=== PATIENT | female | born 1985 | race American Indian/Alaskan Native ===

== ENCOUNTER 2021-01-16 02:01 | Emergency (ER) | payer SELFPAY ==
[2021-01-16 03:33] LABS: Hematocrit 37.5 % (30.3-42.9); Hemoglobin 12.8 gm/dl (10.1-14.3); Mean Corpuscular HGB Conc 34 % (30-34); Mean Corpuscular Volume 93 fl (79-97); Red Blood Count 4.04 M/mm3 (3.65-5.03); Red Cell Distribution Width 12.2 % (13.2-15.2)
[2021-01-16 03:34] LABS: Basophils % (Auto) 0.2 % (0.0-1.8); Eosinophils % (Auto) 0.3 % (0.0-4.3); Lymphocytes # (Auto) 2.6 K/mm3 (1.2-5.4); Lymphocytes % (Auto) 22.2 % (13.4-35.0); Monocytes # (Auto) 0.6 K/mm3 (0.0-0.8); Platelet Count 250 K/mm3 (140-440)
[2021-01-16 03:45] LABS: Alanine Aminotransferase 26 units/L (7-56); Albumin 4.4 g/dL (3.9-5); BUN/Creatinine Ratio 13; Blood Urea Nitrogen 8 mg/dL (7-17); Calcium 9.5 mg/dL (8.4-10.2); Hemolysis Index 4
--- NOTE | 2021-01-16 03:56 | Emergency Department Report ---
ED General Adult HPI - General Chief complaint: Abdominal Pain Stated complaint: N/V/STOMACH PAIN/LATE PERIOD Time Seen by Provider: 01/16/21 03:41 Source: patient Mode of arrival: Ambulatory Limitations: No Limitations - History of Present Illness Initial comments: 35-year-old female patient presents to the emergency department with complaints of diffuse abdominal cramps with associated nausea and vomiting starting tonight. Patient states she experienced 2 episodes of nonbloody emesis. No known sick contacts. No current steroid or antibiotic use. No recent travel. No history of prior abdominal surgeries. Last menstrual cycle was end of November. She has not taken a test since her last menstrual cycle. Denies fever, chills, diarrhea, constipation, vaginal bleeding, vaginal discharge. Denies all other complaints at this time. - Related Data Previous Rx's Medication Instructions Recorded Last Taken Type Pyridoxine HCl (Vitamin B6) 25 mg PO TID #30 tablet 01/16/21 Unknown Rx [Pyridoxine HCl] cephALEXin [Keflex] 500 mg PO Q12HR 7 Days cap 01/16/21 Unknown Rx Allergies Allergy/AdvReac Type Severity Reaction Status Date / Time Penicillins Allergy Hives Verified 01/16/21 04:08 ED Review of Systems ROS: Stated complaint: N/V/STOMACH PAIN/LATE PERIOD Other details as noted in HPI Other: GENERAL: Negative for fever, chills, weight change, anorexia, fatigue. ENT: Negative for ear pain, difficulty hearing, sore throat, nasal congestion, epistaxis. CARDIOVASCULAR: Negative for chest pain, palpitations, lower extremity swelling. PULMONARY: Negative for cough, dyspnea, wheezing, orthopnea, cyanosis. GASTROINTESTINAL: Positive for abdominal cramps, nausea, vomiting. MUSCULOSKELETAL: Negative for joint pain, joint swelling, myalgias, back pain, neck pain. NEUROLOGICAL: Negative for headache, seizure, syncope, paresthesias, weakness. INTEGUMENTARY: Negative for erythema, rash, diaphoresis, laceration, ecchymosis. HEMATOLOGICAL: Negative for hemoptysis, hematemesis, hematochezia, hematuria. PSYCHIATRIC: Negative for hallucinations, suicidal ideation, homicidal ideation, anxiety, depression. ED Past Medical Hx - Past Medical History Previous Medical History?: Yes Additional medical history: Pneumonia - Surgical History Past Surgical History?: No - Social History Smoking Status: Never Smoker Substance Use Type: None - Medications Home Medications: Home Medications Medication Instructions Recorded Confirmed Last Taken Type Pyridoxine HCl (Vitamin B6) 25 mg PO TID #30 tablet 01/16/21 Unknown Rx [Pyridoxine HCl] cephALEXin [Keflex] 500 mg PO Q12HR 7 Days cap 01/16/21 Unknown Rx ED Physical Exam - General Limitations: No Limitations - Other Other exam information: General: Awake and alert. No acute distress. Head: Atraumatic, normocephalic. Eyes: EOMI. Pupils are equal and round. Normal sclera and conjunctiva. ENT: Oral mucosa is moist. Normal pharyngeal exam. Neck: Supple. No lymphadenopathy. Pulmonary: No respiratory distress. Clear to auscultation bilaterally. Cardiac: Regular rate and rhythm. Pulses are palpable and equal bilaterally. No lower extremity cyanosis or edema. Skin: Warm and dry. No rashes. Abdomen: Soft, non-tender, non-protuberant. No guarding, rigidity, or rebound. Bowel sounds are normal. No organomegaly or masses noted. Back: Normal alignment. No CVA tenderness. Extremities: Symmetrical. Full range of motion intact. Neurological: Alert and oriented, appropriately interactive, no focal deficits. Psych: Cooperative. Appropriate mood and affect. Speech is evenly metered. Thoughts are logically construed. ED Course Vital Signs 01/16/21 01/16/21 02:24 04:22 Temperature 98.9 F Pulse Rate 77 69 Respiratory 18 17 Rate Blood Pressure 126/86 Blood Pressure 114/74 [Left] O2 Sat by Pulse 100 100 Oximetry ED Medical Decision Making - Lab Data Result diagrams: 01/16/21 02:44 01/16/21 02:44 - Radiology Data [facility] [address] [place] [address] Ultrasound Report Signed Patient: ISAAC MCCONNELL MR#: [id number] : 1985 Acct:[id number] Age/Sex: 35 / F ADM Date: 01/16/21 Loc: ED Attending Dr: Ordering Physician: MABEL HAYS Date of Service: 01/16/21 Procedure(s): US OB <= 14 weeks fetus Accession Number(s): [id number] cc: MABEL HAYS US OB transvaginal, US OB <= 14 wk fetus add gest INDICATION / CLINICAL INFORMATION: lower abdominal pain + nausea/vomiting, (+) HCG. TECHNIQUE: Transabdominal and Transvaginal. COMPARISON: None available. FINDINGS: UTERUS: Appears within normal limits. GESTATIONAL SAC: Well-defined oval shape and intrauterine in location. YOLK SAC: No significant abnormality. EMBRYO/FETUS: - [place]-Rump Length = 0.5 cm - Heart Rate, beats per minute (if present) = 117 beats per minute ADNEXA: No significant abnormality. FREE FLUID: None. ADDITIONAL FINDINGS: Nabothian cervical cyst, a common finding. IMPRESSION: 1. Single, living intrauterine with estimated sonographic age of 6 weeks 2 days. Signer Name: Bladimir Vazquez MD Signed: 01/16/2021 6:28 AM Workstation Name: [id number] Transcribed By: KARINE Dictated By: Bladimir Vazquez MD Electronically Authenticated By: Bladimir Vazquez MD Signed Date/Time: 01/16/21627 DD/ 5 TD/TT: - Medical Decision Making Differential diagnosis including but not limited to: dehydration, electrolyte abnormality, hypoglycemia, pancreatitis, cholecystitis, urinary tract infection, related complication On reevaluation, patient remains stable. No further vomiting in the emergency department. Repeat abdominal exam is benign. Serum test is positive with beta hCG approximately 22,000. Patient's blood type is A- however she refused RhoGam. She also refused antiemetics. Transvaginal ultrasound shows single live intrauterine approximately 6 weeks gestation. Urinalysis consistent with asymptomatic bacteriuria. Patient is afebrile without vaginal bleeding. Pain is controlled. No clinical indication for further diagnostic work-up on an emergent basis at this time. Patient will be discharged home with antiemetics, antibiotics, and referral to fur stretcher for close outpatient follow-up. Patient expressed understanding and is agreeable to plan of care. care measures discussed. Strict return precautions provided. Repeat exam is unremarkable and benign. History, exam, diagnostic testing, and current condition do not suggest worrisome pathology to warrant further testing, continued ED treatment, admission, or surgical evaluation at this point. Given the low probability of a significant medical illness, it would be more likely to result in harm than benefit to perform further testing at this stage. Discussed findings, presumptive diagnosis, need for follow-up and specific signs/symptoms that should prompt immediate return to the emergency department. Instructions were explained in detail to the patient in addition to giving written discharge information. Patient expressed understanding and was given the opportunity to ask questions, all of which were satisfactorily answered prior to discharge grayson e. Of note, patient has an allergy to penicillin documented in her medical record. States her mother told her she developed hives once as a young child after taking penicillin. She did tolerate Amoxicillin as a teenager without developing rash, difficulty breathing, or anaphylaxis. Since Macrobid is not advisable in first trimester for treatment of asymptomatic bacteriuria, benefits of Keflex administration outweigh risks. Patient has never experienced an adverse reaction to cephalosporins. Emphasized the importance of discontinuing medication immediately if any adverse effects develop. Patient expressed understanding and is agreeable to plan of care. Critical care attestation.: If time is entered above; I have spent that time in minutes in the direct care of this critically ill patient, excluding procedure time. ED Disposition Clinical Impression: Asymptomatic bacteriuria, First trimester Disposition: DC- TO HOME OR SELFCARE Is pt being admited?: No Does the pt Need Aspirin: No Condition: Stable Instructions: Abdominal Pain (ED), First Trimester of Additional Instructions: Take vitamins as directed. Take Pyridoxine as directed for nausea/vomiting. Take Tylenol every 4 hours as needed for pain. Take Keflex with food as directed. Discontinue Keflex immediately if you begin experiencing any adverse effects. Please avoid smoking, drugs, caffeine, and alcohol. Eat a well-balanced diet. Do not eat shellfish. Drink plenty of fluids. Follow up with fur stretcher this week. Call today to schedule an appointment. See referral information below. Do not take anything except Tylenol for pain without consulting your FIELD WORKER. Return to the Emergency Department for severe abdominal pain, loss of fluid, vaginal bleeding or any other concerns. Prescriptions: cephALEXin [Keflex] 500 mg PO Q12HR 7 Days cap Pyridoxine HCl (Vitamin B6) [Pyridoxine HCl] 25 mg PO TID #30 tablet Referrals: PRIMARY CARE, [Primary Care Provider] - 3-5 Days [facility] [Provider Group] - 3-5 Days Forms: Work/School Release Form(ED) Time of Disposition: 07:09
[2021-01-16] MEDS: METOCLOPRAMIDE 10 MG TAB PO ONE ×2 (04:13→05:17)
[2021-01-16] MEDS: DICYCLOMINE 20 MG TAB PO ONE ×2 (04:14→05:17)
[2021-01-16 04:22] VITALS: BP 114/74
[2021-01-16 04:44] LABS: Bacteria,Urine 1+ /HPF (Negative); Bilirubin,Urine NEG (Negative); Blood,Urine NEG (Negative); Color,Urine Yellow (Yellow); Mucus,Urine 3+ /HPF
--- NOTE | 2021-01-16 06:32 | Ultrasound Report ---
US OB transvaginal, US OB <= 14 wk fetus add gest INDICATION / CLINICAL INFORMATION: lower abdominal pain + nausea/vomiting, (+) HCG. TECHNIQUE: Transabdominal and Transvaginal. COMPARISON: None available. FINDINGS: UTERUS: Appears within normal limits. GESTATIONAL SAC: Well-defined oval shape and intrauterine in location. YOLK SAC: No significant abnormality. EMBRYO/FETUS: - [place]-Rump Length = 0.5 cm - Heart Rate, beats per minute (if present) = 117 beats per minute ADNEXA: No significant abnormality. FREE FLUID: None. ADDITIONAL FINDINGS: Nabothian cervical cyst, a common finding. IMPRESSION: 1. Single, living intrauterine with estimated sonographic age of 6 weeks 2 days. Signer Name: Bladimir Vazquez MD Signed: 01/16/2021 6:28 AM Workstation Name: [id number]
--- NOTE | 2021-01-16 06:32 | Ultrasound Report ---
US OB transvaginal, US OB <= 14 wk fetus add gest INDICATION / CLINICAL INFORMATION: lower abdominal pain + nausea/vomiting, (+) HCG. TECHNIQUE: Transabdominal and Transvaginal. COMPARISON: None available. FINDINGS: UTERUS: Appears within normal limits. GESTATIONAL SAC: Well-defined oval shape and intrauterine in location. YOLK SAC: No significant abnormality. EMBRYO/FETUS: - [place]-Rump Length = 0.5 cm - Heart Rate, beats per minute (if present) = 117 beats per minute ADNEXA: No significant abnormality. FREE FLUID: None. ADDITIONAL FINDINGS: Nabothian cervical cyst, a common finding. IMPRESSION: 1. Single, living intrauterine with estimated sonographic age of 6 weeks 2 days. Signer Name: Bladimir Vazquez MD Signed: 01/16/2021 6:28 AM Workstation Name: [id number]
== END 2021-01-16 07:24 | disposition home or self-care (01) ==
LOC: ED 02:01
DX: O26.891 Other specified pregnancy related conditions, first trimester (principal); R82.71 Bacteriuria; Z79.899 Other long term (current) drug therapy; Z88.0 Allergy status to penicillin; Z3A.14 14 weeks gestation of pregnancy
CPT/HCPCS: 36415; 76801; 76817; 80053; 81001; 83690; 84702; 84703; 85025; 86850; 86900; 86901